=== PATIENT | male | born 1930 | race Caucasian/White ===

== ENCOUNTER 2021-12-14 19:57 | Inpatient (IN) | payer MEDICARE ==
--- NOTE | 2021-12-14 20:05 | ERPHSYRPT ---
- History of Present Illness Time Seen by Provider: 12/14/21 20:00 Source: patient, family, EMS Exam Limitations: clinical condition Physician History: This is an 89-year-old white male patient of Dr. Polanco who is a resident of [facility]. Patient has been diagnosed with right facial herpes zoster and is on valacyclovir. Patient was seen by Dr. Polanco this morning. He recently, was diagnosed with a urinary tract infection and is on antibiotics. Patient's son states that the patient did not have altered mental status earlier today. However, he does state that he appears to be weaker in the last several days as well as decreased appetite and oral intake. Patient has a history of CHF, asthma COPD. He is on amiodarone and Eliquis. He has had a history of arrhythmias and cardiac valve replacement. Patient denies chest pain. He denies abdominal pain. He has had intermittent nausea. Patient is DNR Timing/Duration: today Severity: moderate Character of Deficits: new weakness (Generalized) Deficits: decrease ability to walk, weak Baseline/Normal Cognition: alert but confused Current Cognition: alert but confused Baseline Gait: walks w/o assistance Associated Symptoms: fever, nausea, weakness Allergies/Adverse Reactions: No Known Drug Allergies Allergy (Verified 12/14/21 20:19) Home Medications: Amiodarone HCl 200 mg PO DAILY 12/01/21 [History] Aspirin 81 mg PO DAILY 12/01/21 [History] Furosemide [Lasix] 20 mg PO DAILY 12/01/21 [History] Hydrocodone/Acetaminophen [Hydrocodone-Acetamin 7.5-325] 1 each PO BIDPRN PRN 12/01/21 [History] Potassium Chloride 10 mg PO DAILY 12/01/21 [History] Mupirocin [Bactroban OINTMENT] 12/14/21 [History] Nitroglycerin 0.4 mg PO QID PRN 12/14/21 [History] Ondansetron [Ondansetron Odt] 4 mg PO QID PRN 12/14/21 [History] Valacyclovir HCl [Valacyclovir] 1,000 mg PO DAILY 12/14/21 [History] Travel Risk - International Travel Have you traveled outside of the country in past 3 weeks: No - Coronavirus Screening Are you exhibiting any of the following symptoms?: No Close contact with a COVID-19 positive Pt in past 14-21 Days: No - Review of Systems Constitutional: Fever, Weakness Eyes: No Symptoms Ears, Nose, & Throat: No Symptoms Respiratory: No Symptoms Cardiac: No Symptoms Abdominal/Gastrointestinal: Nausea, No Abdominal Pain, No Vomiting, No Diarrhea Genitourinary Symptoms: No Symptoms Musculoskeletal: No Symptoms Skin: No Symptoms Neurological: Other (Altered mental status/confusion) Psychological: No Symptoms Endocrine: No Symptoms Hematologic/Lymphatic: No Symptoms Immunological/Allergic: No Symptoms All Other Systems: Reviewed and Negative - Past Medical History Pertinent Past Medical History: Yes Neurological History: No Pertinent History ENT History: No Pertinent History Cardiac History: Arrhythmia Respiratory History: COPD Endocrine Medical History: No Pertinent History Musculoskeletal History: No Pertinent History GI Medical History: No Pertinent History History: No Pertinent History Psycho-Social History: No Pertinent History Male Reproductive Disorders: Prostate Problems - Past Surgical History Past Surgical History: Yes Neuro Surgical History: No Pertinent History Cardiac: Valve Replacement Respiratory: No Pertinent History Gastrointestinal: No Pertinent History Genitourinary: No Pertinent History Musculoskeletal: Joint Replacement Male Surgical History: No Pertinent History - Social History Smoking Status: Former smoker Exposure to second hand smoke: No Drug Use: none - Nursing Vital Signs Nursing Vital Signs: Initial Vital Signs Pulse Rate 107 H 12/14/21 20:00 Respiratory Rate 24 12/14/21 20:00 Blood Pressure 114/62 12/14/21 20:00 O2 Sat by Pulse Oximetry 93 L 12/14/21 20:00 Pain Scale Pain Intensity 0 - Purlear Coma Scale Best Eye Response (Neel): (4) open spontaneously Best Verbal Response (Neel): (4) confused conversation Best Motor Response (Neel): (6) obeys commands Neel Total: 14 - Physical Exam General Appearance: no apparent distress, lethargy (Mild arousable), obese Eye Exam: bilateral eye: normal inspection, PERRL, EOMI Ears, Nose, Throat Exam: normal ENT inspection, dry mucous membranes Neck Exam: normal inspection, non-tender, supple, full range of motion Respiratory: normal breath sounds, lungs clear, airway intact, No chest tenderness, No respiratory distress Cardiovascular: tachycardia Gastrointestinal: soft, normal bowel sounds, No tenderness Rectal Exam: not done Back Exam: normal inspection, normal range of motion, No CVA tenderness, No vertebral tenderness Extremity Exam: normal inspection, normal range of motion, pelvis stable Mental Status: oriented x 3, cooperative, 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 hearing, normal speech, PERRL Coordination/Gait: normal finger to nose Motor/Sensory: weak motor strength RUE, weak motor strength LUE, weak motor strength RLE, weak motor strength LLE Skin Exam: normal color, warm, dry SpO2 Interpretation: borderline oxygenation O2 Delivery: Room Air - Course Nursing assessment & vital signs reviewed: Yes Ordered Tests: Active Orders 24 hr Category Date Time Status Zaldivar [Catheter-[place] Zaldivar] STAT Care 12/14/21 20:18 Active IV Insertion STAT Care 12/14/21 20:07 Active NPO (ED) STAT Care 12/14/21 20:07 Active Pulse Oximetry (ED) STAT Care 12/14/21 20:07 Active HEAD WITHOUT CONTRAST [CT] Stat Exams 12/14/21 20:07 Taken BLOOD CULTURE Stat Lab 12/14/21 21:30 Received CBC W DIFF Stat Lab 12/14/21 20:05 Completed CMP Stat Lab 12/14/21 20:05 Completed CULTURE,URINE Stat Lab 12/14/21 20:19 Received Lactic Acid Stat Lab 12/14/21 20:24 Completed Lactic Acid Stat Lab 12/14/21 20:43 Ordered Lactic Acid Stat Lab 12/14/21 22:28 Received Transfer Order Routine Transfer 12/14/21 Ordered Medication Summary Generic Name Dose Route Start Last Admin Trade Name Freq PRN Reason Stop Dose Admin Levofloxacin/Dextrose 500 mg in 100 mls @ 100 mls/hr 12/14/21 21:51 12/14/21 21:56 Levofloxacin 500mg/100ml D5w IV 12/14/21 22:50 100 mls/hr STAT STA 100 mls/hr Administration Sodium Chloride 1,000 mls @ 75 mls/hr 12/14/21 22:00 12/14/21 21:57 Sodium Chloride 0.9% 1000 Ml IV 01/13/22 21:59 75 mls/hr .[id number] MISSY Administration Discontinued Medications Generic Name Dose Route Start Last Admin Trade Name Freq PRN Reason Stop Dose Admin Acetaminophen 650 mg 12/14/21 20:43 12/14/21 20:52 Acetaminophen 325 Mg Tablet PO 12/14/21 20:44 Not Given STAT STA Acetaminophen 650 mg 12/14/21 20:52 12/14/21 20:57 Acetaminophen 650 Mg Supp.Rect WI 12/14/21 20:53 650 mg STAT ONE Administration Acetaminophen Confirm 12/14/21 20:56 Acetaminophen 650 Mg Supp.Rect Administered 12/14/21 20:57 Dose 650 mg .ROUTE .STK-MED ONE Levofloxacin/Dextrose Confirm 12/14/21 21:54 Levofloxacin 500mg/100ml D5w Administered 12/14/21 21:55 Dose 500 mg in 100 mls @ ud IV .STK-MED ONE Lab/Rad Data: Laboratory Result Diagrams 12/14/21 20:05 12/14/21 20:05 Laboratory Results 12/14/21 12/14/21 12/14/21 Range/Units 20:24 20:19 20:05 WBC (4.0-10.5) K/mm3 RBC (4.1-5.6) M/mm3 Hgb (12.5-18.0) gm/dl Hct (42-50) % MCV (78-100) fl MCH (26-32) pg MCHC (32-36) g/dl RDW (11.5-14.0) % Plt Count (150-450) K/mm3 MPV (7.5-11.0) fl Gran % (36.0-66.0) % Eos # (Auto) (0-0.5) Absolute Lymphs (auto) (1.0-4.6) Absolute Monos (auto) (0.0-1.3) Lymphocytes % (24.0-44.0) % Monocytes % (0.0-12.0) % Eosinophils % (0.00-5.0) % Basophils % (0.0-0.4) % Absolute Granulocytes (1.4-6.9) Basophils # (0-0.4) Sodium (137-145) mmol/L Potassium (3.5-5.1) mmol/L Chloride (98-107) mmol/L Carbon Dioxide (22-30) mmol/L Anion Gap (5-15) MEQ/L BUN (9-20) mg/dL Creatinine (0.66-1.25) mg/dL Estimated GFR ML/MIN Glucose (74-106) mg/dL Lactic Acid 2.0 (0.4-2.0) Calcium (8.4-10.2) mg/dL Total Bilirubin (0.2-1.3) mg/dL AST (17-59) U/L ALT (0-50) U/L Alkaline Phosphatase (38-126) U/L Ammonia < 9 L (9-30) umol/L Serum Total Protein (6.3-8.2) g/dL Albumin (3.5-5.0) g/dL Urinalys Dipstick Clnc MAIN LAB Urine Color YELLOW (YELLOW) Urine Appearance CLOUDY (CLEAR) Urine pH 5.5 (5-6) Ur Specific [place] 1.020 (1.005-1.025) POC Urine Protein Conf 30 (Negative) Urine Ketones NEGATIVE (NEGATIVE) Urine Nitrite NEGATIVE (NEGATIVE) Urine Bilirubin NEGATIVE (NEGATIVE) Urine Urobilinogen 0.2 (0-1) mg/dL Urine Leukocytes MODERATE (NEGATIVE) Urine WBC (Auto) >100 (0-5) /HPF Urine RBC (Auto) >101 (0-2) /HPF U Hyaline Cast (Auto) 3-5 (0-2) /LPF U Epithel Cells (Auto) RARE (FEW) /HPF Urine Bacteria (Auto) FEW (NEGATIVE) /HPF Urine RBC LARGE (0-5) Barney/ul Urine Mucus (Auto) SLIGHT (NEGATIVE) /HPF Ur Culture Indicated? YES Urine Glucose NEGATIVE (NEGATIVE) mg/dL 12/14/21 12/14/21 Range/Units 20:05 20:05 WBC 16.8 H (4.0-10.5) K/mm3 RBC 5.49 (4.1-5.6) M/mm3 Hgb 16.7 (12.5-18.0) gm/dl Hct 51.6 H (42-50) % MCV 94.0 (78-100) fl MCH 30.4 (26-32) pg MCHC 32.4 (32-36) g/dl RDW 16.1 H (11.5-14.0) % Plt Count 120 L (150-450) K/mm3 MPV 10.7 (7.5-11.0) fl Gran % 86.4 H (36.0-66.0) % Eos # (Auto) 0.10 (0-0.5) Absolute Lymphs (auto) 0.99 L (1.0-4.6) Absolute Monos (auto) 1.18 (0.0-1.3) Lymphocytes % 5.9 L (24.0-44.0) % Monocytes % 7.0 (0.0-12.0) % Eosinophils % 0.6 (0.00-5.0) % Basophils % 0.1 (0.0-0.4) % Absolute Granulocytes 14.52 H (1.4-6.9) Basophils # 0.02 (0-0.4) Sodium 134 L (137-145) mmol/L Potassium 5.0 (3.5-5.1) mmol/L Chloride 94 L (98-107) mmol/L Carbon Dioxide 34 H (22-30) mmol/L Anion Gap 11.8 (5-15) MEQ/L BUN 29 H (9-20) mg/dL Creatinine 0.93 (0.66-1.25) mg/dL Estimated GFR > 60.0 ML/MIN Glucose 123 H (74-106) mg/dL Lactic Acid (0.4-2.0) Calcium 8.6 (8.4-10.2) mg/dL Total Bilirubin 1.30 (0.2-1.3) mg/dL AST 36 (17-59) U/L ALT 65 H (0-50) U/L Alkaline Phosphatase 114 (38-126) U/L Ammonia (9-30) umol/L Serum Total Protein 6.2 L (6.3-8.2) g/dL Albumin 3.1 L (3.5-5.0) g/dL Urinalys Dipstick Clnc Urine Color (YELLOW) Urine Appearance (CLEAR) Urine pH (5-6) Ur Specific [place] (1.005-1.025) POC Urine Protein Conf (Negative) Urine Ketones (NEGATIVE) Urine Nitrite (NEGATIVE) Urine Bilirubin (NEGATIVE) Urine Urobilinogen (0-1) mg/dL Urine Leukocytes (NEGATIVE) Urine WBC (Auto) (0-5) /HPF Urine RBC (Auto) (0-2) /HPF U Hyaline Cast (Auto) (0-2) /LPF U Epithel Cells (Auto) (FEW) /HPF Urine Bacteria (Auto) (NEGATIVE) /HPF Urine RBC (0-5) Barney/ul Urine Mucus (Auto) (NEGATIVE) /HPF Ur Culture Indicated? Urine Glucose (NEGATIVE) mg/dL - Progress Progress: improved, re-examined Progress Note: 12/14/21 22:20 CAT scan of the head without contrast shows new atrophy present. 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 There is no acute findings. 12/14/21 22:22 Medical decision making: This patient has increased confusion. He is not eating well is not drinking well. I spoke with Dr. Polanco who is the patient's primary care provider. The patient is DNR. We will admit him into the hospital provide him with IV hydration as well as Levaquin intravenous antibiotics. I did check the culture and sensitivities and what grew out of his urine in terms of bacteria is sensitive to Levaquin. Patient was on Macrodantin. Discussed with : Sarah Counseled pt/family regarding: lab results, diagnosis, rad results - Departure Departure Disposition: In-patient Admission Clinical Impression: Altered mental status, UTI (urinary tract infection) Condition: Stable Critical Care Time: No Referrals: AKBAR POLANCO MD [Primary Care Provider] - Follow up/PCP as directed
[2021-12-14 20:34] LABS: Absolute Neutrophil Ct (ANC) 14.52 (1.4-6.9); Basophil (Absolute #) 0.02 (0-0.4); Eosinophil % 0.6 % (0.00-5.0); Hematocrit 51.6 % (42-50); Hemoglobin 16.7 gm/dl (12.5-18.0); Lymphocyte (Absolute #) 0.99 (1.0-4.6); Lymphocytes % 5.9 % (24.0-44.0); Mean Corpuscular Hemoglobin 30.4 pg (26-32); Mean Corpuscular Hgb Concent. 32.4 g/dl (32-36); Mean Platelet Volume 10.7 fl (7.5-11.0); Monocyte (Absolute #) 1.18 (0.0-1.3); Neutrophil % 86.4 % (36.0-66.0); Platelet Count 120 K/mm3 (150-450); Red Blood Count 5.49 M/mm3 (4.1-5.6); Red Cell Distribution Width 16.1 % (11.5-14.0); White Blood Count 16.8 K/mm3 (4.0-10.5)
[2021-12-14] MEDS ORDERED: TYLENOL 325 MG PO STA (20:43)
[2021-12-14 20:44] LABS: ALBUMIN 3.1 g/dL (3.5-5.0); ALKALINE PHOSPHATASE 114 U/L (38-126); ANION GAP 11.8 MEQ/L (5-15); BLOOD UREA NITROGEN 29 mg/dL (9-20); CHLORIDE 94 mmol/L (98-107); Calcium 8.6 mg/dL (8.4-10.2); Carbon Dioxide 34 mmol/L (22-30); Creatinine 1 0.93 mg/dL (0.66-1.25); EST GLOMERULAR FILTRATION RATE > 60.0 ML/MIN; Glucose 123 mg/dL (74-106); SGOT/AST 36 U/L (17-59); SGPT/ALT 65 U/L (0-50); SODIUM 134 mmol/L (137-145); Total Protein 6.2 g/dL (6.3-8.2)
[2021-12-14 20:52] LABS: Bacteria FEW /HPF (NEGATIVE); Epithelial Cells RARE /HPF (FEW); Mucus SLIGHT /HPF (NEGATIVE); WBC >100 /HPF (0-5)
[2021-12-14] MEDS ORDERED: FEVERALL 650 MG PR ONE (20:52)
[2021-12-14] MEDS ORDERED: FEVERALL 650 MG ONE (20:56)
[2021-12-14 21:01] LABS: Appearance CLOUDY (CLEAR); Bilirubin NEGATIVE (NEGATIVE); Glucose NEGATIVE (NEGATIVE); Ketones NEGATIVE (NEGATIVE); Ph 5.5 (5-6); Protein,Urine Dip 30 (Negative); RBC >101 /HPF (0-2); RBC LARGE Ery/ul (0-5)
[2021-12-14 21:02] LABS: Nitrite NEGATIVE (NEGATIVE); Urine Cultured Indicated? YES; Urobilinogen 0.2 mg/dL (0-1)
[2021-12-14 21:16] LABS: Dipstick done @ ? MAIN LAB
[2021-12-14] MEDS ORDERED: Levofloxacin 500MG/100ML D5W 500 MG/100 ML BAG IV STA (21:51)
[2021-12-14] MEDS ORDERED: Levofloxacin 500MG/100ML D5W 500 MG/100 ML BAG IV ONE (21:54)
[2021-12-14] MEDS ORDERED: Sodium Chloride 0.9% 1000 ML 1,000 ML ONE (21:56)
[2021-12-14] MEDS ORDERED: Sodium Chloride 0.9% 1000 ML 1,000 ML IV SCH (22:00)
[2021-12-14 23:09] LABS: INFLUENZA A NEGATIVE (NEGATIVE); INFLUENZA B NEGATIVE (NEGATIVE); RESPIRATORY SYNCTIAL VIRUS NEGATIVE (Negative); SARS-CoV-2 Xpert Express NEGATIVE (NEGATIVE)
[2021-12-14] MEDS ORDERED: Zofran 4 MG/2 ML VIAL IV PRN (23:34)
[2021-12-15] MEDS: Sodium Chloride 0.9% 1000 ML 1,000 ML IV SCH ×2 (00:24→15:45)
[2021-12-15 05:27] LABS: Absolute Neutrophil Ct (ANC) 9.59 (1.4-6.9); Basophil (Absolute #) 0.01 (0-0.4); Eosinophil % 0.5 % (0.00-5.0); Eosinophil (Absolute #) 0.06 (0-0.5); Hematocrit 43.5 % (42-50); Hemoglobin 13.7 gm/dl (12.5-18.0); Lymphocyte (Absolute #) 1.48 (1.0-4.6); Lymphocytes % 12.4 % (24.0-44.0); Mean Cell Volume 95.4 fl (78-100); Mean Corpuscular Hgb Concent. 31.5 g/dl (32-36); Mean Platelet Volume 10.9 fl (7.5-11.0); Monocyte (Absolute #) 0.78 (0.0-1.3); Monocytes % 6.5 % (0.0-12.0); Neutrophil % 80.5 % (36.0-66.0); Platelet Count 97 K/mm3 (150-450); Red Blood Count 4.56 M/mm3 (4.1-5.6); White Blood Count 11.9 K/mm3 (4.0-10.5)
[2021-12-15 05:44] LABS: ALBUMIN 2.5 g/dL (3.5-5.0); ALKALINE PHOSPHATASE 75 U/L (38-126); ANION GAP 6.8 MEQ/L (5-15); BLOOD UREA NITROGEN 28 mg/dL (9-20); CHLORIDE 97 mmol/L (98-107); Calcium 7.8 mg/dL (8.4-10.2); Carbon Dioxide 36 mmol/L (22-30); Creatinine 1 0.82 mg/dL (0.66-1.25); EST GLOMERULAR FILTRATION RATE > 60.0 ML/MIN; Glucose 108 mg/dL (74-106); Potassium 4.5 mmol/L (3.5-5.1); SGOT/AST 40 U/L (17-59); SGPT/ALT 50 U/L (0-50); SODIUM 135 mmol/L (137-145); Total Protein 5.2 g/dL (6.3-8.2)
--- NOTE | 2021-12-15 08:32 | PCM.HP ---
History of Present Illness - Chief Complaint Chief Complaint: UTI History of Present Illness: is a 89 year old male with recent herpes zoster on the right scalp and forehead, he presented to ER yesterday with fever and increased confusion. He has no pain today, has some itching in the right side of the face and scalp. - Review of Systems Constitutional: Fever, No Chills Respiratory: No Cough, No Short Of Breath Cardiac: No Chest Pain, No Edema, No Syncope Abdominal/Gastrointestinal: No Abdominal Pain, No Nausea, No Vomiting, No Diarrhea Skin: No Rash All Other Systems: Reviewed and Negative Medications & Allergies Home Medications: Home Medication List Amiodarone HCl 200 mg PO DAILY 12/01/21 [History Confirmed 12/14/21] Aspirin 81 mg PO DAILY 12/01/21 [History Confirmed 12/14/21] Furosemide [Lasix] 20 mg PO DAILY 12/01/21 [History Confirmed 12/14/21] Hydrocodone/Acetaminophen [Hydrocodone-Acetamin 7.5-325] 1 each PO BIDPRN PRN 12/01/21 [History Confirmed 12/14/21] Potassium Chloride 10 mg PO DAILY 12/01/21 [History Confirmed 12/14/21] Mupirocin [Bactroban OINTMENT] 1 applic TOP TID 12/14/21 [History Confirmed 12/15/21] Nitroglycerin 0.4 mg PO Q5MIN PRN MR X 3 PRN 12/14/21 [History Confirmed 12/15/21] Ondansetron [Ondansetron Odt] 4 mg PO TIDPRN PRN 12/14/21 [History Confirmed 12/15/21] Valacyclovir HCl [Valacyclovir] 1,000 mg PO TID 12/14/21 [History Confirmed 12/15/21] Allergies/Adverse Reactions: Allergies Allergy/AdvReac Type Severity Reaction Status Date / Time No Known Drug Allergies Allergy Verified 12/14/21 20:19 - Past Medical History Past Medical History: Yes Neurological History: No Pertinent History ENT History: No Pertinent History Cardiac History: Arrhythmia Respiratory History: COPD Endocrine Medical History: No Pertinent History Musculoskelatal History: No Pertinent History GI Medical History: No Pertinent History History: No Pertinent History Pyscho-Social History: No Pertinent History Male Reproductive Disorders: Prostate Problems Comment: heart surgery in 1994, prostate cancer - Past Surgical History Past Surgical History: Yes Neuro Surgical History: No Pertinent History Cardiac History: Valve Replacement Respiratory Surgery: No Pertinent History GI Surgical History: No Pertinent History Genitourinary Surgical Hx: No Pertinent History Musculskeletal Surgical Hx: Joint Replacement Male Surgical History: No Pertinent History Other Surgical History: knee replaced - Social History Smoking Status: Heavy tobacco smoker Exposure to second hand smoke: No Alcohol: None Drug Use: none - Physical Exam Vital Signs: Vital Signs - 24 hr Temp Pulse Resp BP Pulse Ox 12/15/21 07:25 98.0 F 72 16 107/58 93 L 12/15/21 04:00 98.1 F 71 16 106/55 95 12/14/21 23:57 97.3 F 82 20 93/52 91 L 12/14/21 23:32 83 20 87/57 94 L 12/14/21 23:12 88 18 82/52 94 L 12/14/21 23:02 100.0 F 87 18 69/40 93 L 12/14/21 22:01 100.8 F 94 H 18 92/51 93 L 12/14/21 21:04 101.5 F 104 H 20 119/83 93 L 12/14/21 20:41 101.3 F 103 H 26 H 114/62 93 L 12/14/21 20:09 93 L 12/14/21 20:00 107 H 24 114/62 93 L General Appearance: no apparent distress, mild distress Neurologic Exam: alert, oriented x 3 Respiratory Exam: crackles/rales Cardiovascular Exam: regular rate/rhythm, normal heart sounds, normal peripheral pulses Gastrointestinal/Abdomen Exam: soft, normal bowel sounds, No tenderness, No mass Skin Exam: other (scabbed healing areas on the right side of the forehead) Results - Labs Lab/Micro Results: Lab Results-Last 24 Hours 12/14/21 12/14/21 12/14/21 Range/Units 20:05 20:05 20:05 WBC 16.8 H (4.0-10.5) K/mm3 RBC 5.49 (4.1-5.6) M/mm3 Hgb 16.7 (12.5-18.0) gm/dl Hct 51.6 H (42-50) % MCV 94.0 (78-100) fl MCH 30.4 (26-32) pg MCHC 32.4 (32-36) g/dl RDW 16.1 H (11.5-14.0) % Plt Count 120 L (150-450) K/mm3 MPV 10.7 (7.5-11.0) fl Gran % 86.4 H (36.0-66.0) % Eos # (Auto) 0.10 (0-0.5) Absolute Lymphs (auto) 0.99 L (1.0-4.6) Absolute Monos (auto) 1.18 (0.0-1.3) Lymphocytes % 5.9 L (24.0-44.0) % Monocytes % 7.0 (0.0-12.0) % Eosinophils % 0.6 (0.00-5.0) % Basophils % 0.1 (0.0-0.4) % Absolute Granulocytes 14.52 H (1.4-6.9) Basophils # 0.02 (0-0.4) Sodium 134 L (137-145) mmol/L Potassium 5.0 (3.5-5.1) mmol/L Chloride 94 L (98-107) mmol/L Carbon Dioxide 34 H (22-30) mmol/L Anion Gap 11.8 (5-15) MEQ/L BUN 29 H (9-20) mg/dL Creatinine 0.93 (0.66-1.25) mg/dL Estimated GFR > 60.0 ML/MIN Glucose 123 H (74-106) mg/dL Lactic Acid (0.4-2.0) Calcium 8.6 (8.4-10.2) mg/dL Total Bilirubin 1.30 (0.2-1.3) mg/dL AST 36 (17-59) U/L ALT 65 H (0-50) U/L Alkaline Phosphatase 114 (38-126) U/L Ammonia < 9 L (9-30) umol/L Serum Total Protein 6.2 L (6.3-8.2) g/dL Albumin 3.1 L (3.5-5.0) g/dL Urinalys Dipstick Clnc Urine Color (YELLOW) Urine Appearance (CLEAR) Urine pH (5-6) Ur Specific [place] (1.005-1.025) POC Urine Protein Conf (Negative) Urine Ketones (NEGATIVE) Urine Nitrite (NEGATIVE) Urine Bilirubin (NEGATIVE) Urine Urobilinogen (0-1) mg/dL Urine Leukocytes (NEGATIVE) Urine WBC (Auto) (0-5) /HPF Urine RBC (Auto) (0-2) /HPF U Hyaline Cast (Auto) (0-2) /LPF U Epithel Cells (Auto) (FEW) /HPF Urine Bacteria (Auto) (NEGATIVE) /HPF Urine RBC (0-5) Barney/ul Urine Mucus (Auto) (NEGATIVE) /HPF Ur Culture Indicated? Urine Glucose (NEGATIVE) mg/dL Influenza Type A Ag (NEGATIVE) Influenza Type B Ag (NEGATIVE) RSV (PCR) (Negative) SARS-CoV-2 (PCR) (NEGATIVE) 12/14/21 12/14/21 12/14/21 Range/Units 20:19 20:24 22:30 WBC (4.0-10.5) K/mm3 RBC (4.1-5.6) M/mm3 Hgb (12.5-18.0) gm/dl Hct (42-50) % MCV (78-100) fl MCH (26-32) pg MCHC (32-36) g/dl RDW (11.5-14.0) % Plt Count (150-450) K/mm3 MPV (7.5-11.0) fl Gran % (36.0-66.0) % Eos # (Auto) (0-0.5) Absolute Lymphs (auto) (1.0-4.6) Absolute Monos (auto) (0.0-1.3) Lymphocytes % (24.0-44.0) % Monocytes % (0.0-12.0) % Eosinophils % (0.00-5.0) % Basophils % (0.0-0.4) % Absolute Granulocytes (1.4-6.9) Basophils # (0-0.4) Sodium (137-145) mmol/L Potassium (3.5-5.1) mmol/L Chloride (98-107) mmol/L Carbon Dioxide (22-30) mmol/L Anion Gap (5-15) MEQ/L BUN (9-20) mg/dL Creatinine (0.66-1.25) mg/dL Estimated GFR ML/MIN Glucose (74-106) mg/dL Lactic Acid 2.0 (0.4-2.0) Calcium (8.4-10.2) mg/dL Total Bilirubin (0.2-1.3) mg/dL AST (17-59) U/L ALT (0-50) U/L Alkaline Phosphatase (38-126) U/L Ammonia (9-30) umol/L Serum Total Protein (6.3-8.2) g/dL Albumin (3.5-5.0) g/dL Urinalys Dipstick Clnc MAIN LAB Urine Color YELLOW (YELLOW) Urine Appearance CLOUDY (CLEAR) Urine pH 5.5 (5-6) Ur Specific [place] 1.020 (1.005-1.025) POC Urine Protein Conf 30 (Negative) Urine Ketones NEGATIVE (NEGATIVE) Urine Nitrite NEGATIVE (NEGATIVE) Urine Bilirubin NEGATIVE (NEGATIVE) Urine Urobilinogen 0.2 (0-1) mg/dL Urine Leukocytes MODERATE (NEGATIVE) Urine WBC (Auto) >100 (0-5) /HPF Urine RBC (Auto) >101 (0-2) /HPF U Hyaline Cast (Auto) 3-5 (0-2) /LPF U Epithel Cells (Auto) RARE (FEW) /HPF Urine Bacteria (Auto) FEW (NEGATIVE) /HPF Urine RBC LARGE (0-5) Barney/ul Urine Mucus (Auto) SLIGHT (NEGATIVE) /HPF Ur Culture Indicated? YES Urine Glucose NEGATIVE (NEGATIVE) mg/dL Influenza Type A Ag NEGATIVE (NEGATIVE) Influenza Type B Ag NEGATIVE (NEGATIVE) RSV (PCR) NEGATIVE (Negative) SARS-CoV-2 (PCR) NEGATIVE (NEGATIVE) 12/15/21 12/15/21 Range/Units 04:20 04:20 WBC 11.9 H (4.0-10.5) K/mm3 RBC 4.56 (4.1-5.6) M/mm3 Hgb 13.7 (12.5-18.0) gm/dl Hct 43.5 (42-50) % MCV 95.4 (78-100) fl MCH 30.0 (26-32) pg MCHC 31.5 L (32-36) g/dl RDW 16.0 H (11.5-14.0) % Plt Count 97 L (150-450) K/mm3 MPV 10.9 (7.5-11.0) fl Gran % 80.5 H (36.0-66.0) % Eos # (Auto) 0.06 (0-0.5) Absolute Lymphs (auto) 1.48 (1.0-4.6) Absolute Monos (auto) 0.78 (0.0-1.3) Lymphocytes % 12.4 L (24.0-44.0) % Monocytes % 6.5 (0.0-12.0) % Eosinophils % 0.5 (0.00-5.0) % Basophils % 0.1 (0.0-0.4) % Absolute Granulocytes 9.59 H (1.4-6.9) Basophils # 0.01 (0-0.4) Sodium 135 L (137-145) mmol/L Potassium 4.5 (3.5-5.1) mmol/L Chloride 97 L (98-107) mmol/L Carbon Dioxide 36 H (22-30) mmol/L Anion Gap 6.8 (5-15) MEQ/L BUN 28 H (9-20) mg/dL Creatinine 0.82 (0.66-1.25) mg/dL Estimated GFR > 60.0 ML/MIN Glucose 108 H (74-106) mg/dL Lactic Acid (0.4-2.0) Calcium 7.8 L (8.4-10.2) mg/dL Total Bilirubin 1.20 (0.2-1.3) mg/dL AST 40 (17-59) U/L ALT 50 (0-50) U/L Alkaline Phosphatase 75 (38-126) U/L Ammonia (9-30) umol/L Serum Total Protein 5.2 L (6.3-8.2) g/dL Albumin 2.5 L (3.5-5.0) g/dL Urinalys Dipstick Clnc Urine Color (YELLOW) Urine Appearance (CLEAR) Urine pH (5-6) Ur Specific [place] (1.005-1.025) POC Urine Protein Conf (Negative) Urine Ketones (NEGATIVE) Urine Nitrite (NEGATIVE) Urine Bilirubin (NEGATIVE) Urine Urobilinogen (0-1) mg/dL Urine Leukocytes (NEGATIVE) Urine WBC (Auto) (0-5) /HPF Urine RBC (Auto) (0-2) /HPF U Hyaline Cast (Auto) (0-2) /LPF U Epithel Cells (Auto) (FEW) /HPF Urine Bacteria (Auto) (NEGATIVE) /HPF Urine RBC (0-5) [place]/ul Urine Mucus (Auto) (NEGATIVE) /HPF Ur Culture Indicated? Urine Glucose (NEGATIVE) mg/dL Influenza Type A Ag (NEGATIVE) Influenza Type B Ag (NEGATIVE) RSV (PCR) (Negative) SARS-CoV-2 (PCR) (NEGATIVE) - Radiology Impressions Radiology Exams & Impressions: Radiology Procedures Category Date Time Status HEAD WITHOUT CONTRAST [CT] Stat Exams 12/14/21 20:07 Taken Assessment/Plan (1) UTI (urinary tract infection) Current Visit: Yes Status: Acute Assessment & Plan: on levaquin, culture pending. grew enterococcus on culture Code(s): N39.0 - URINARY TRACT INFECTION, SITE NOT SPECIFIED (2) Herpes zoster Current Visit: Yes Status: Acute Code(s): B02.9 - ZOSTER WITHOUT COMPLICATIONS (3) Altered mental status Current Visit: Yes Status: Acute Code(s): R41.82 - ALTERED MENTAL STATUS, UNSPECIFIED
--- NOTE | 2021-12-15 08:48 | XRAY ---
Indication: Altered mental status. Right facial herpes zoster. Multiple contiguous axial images obtained through the head without contrast. Comparison: May 19, 2011. There has been interval age-appropriate global atrophy with moderate periventricular degenerative micro-ischemia bilaterally. Remote lacunar infarcts left basal ganglia, both thalami, and left mid periventricular. No acute intracranial hemorrhage, abnormal extra-axial fluid collection, or mass effect. Fourth ventricle is midline without hydrocephalus. Bony calvarium intact. Visualized paranasal sinuses and mastoid air cells are clear. Impression: New normal aging brain including atrophy and degenerative micro-ischemia. New multifocal remote cerebral lacunar infarcts as detailed. No acute intracranial abnormalities.
[2021-12-15] MEDS ORDERED: NON-FORMULARY ITEM (Potassium Chloride [Potassium Chloride] 10 MEQ Tab.Er.Prt) PO SCH (10:00)
[2021-12-15] MEDS ORDERED: NON-FORMULARY ITEM (Valacyclovir Hcl [Valacyclovir] 1,000 MG Tablet) PO SCH (10:00)
[2021-12-15 10:55] LABS: Slide Review 1 YES
[2021-12-15] MEDS: ECOTRIN 81 MG PO SCH (11:22)
[2021-12-15] MEDS: Bactroban OINTMENT TOP SCH ×3 (11:23→21:46)
[2021-12-15] MEDS: LASIX 20 MG PO SCH (11:24)
[2021-12-15] MEDS: ACYCLOVIR PO SCH ×4 (11:24→21:45)
[2021-12-15] MEDS: Cordarone 200 MG PO SCH (11:24)
[2021-12-15] MEDS: Klor Con 10 MEQ PO SCH (11:24)
[2021-12-15] MEDS: NORCO 7.5/325 MG TAB PO PRN ×2 (15:09→21:45)
[2021-12-15] MEDS: Cipro 500 MG PO SCH (16:48)
[2021-12-15] MEDS ORDERED: HYDROCODONE-ACETAMIN 10-325 MG PO ONE (17:00)
[2021-12-15] MEDS: TYLENOL 325 MG PO PRN (18:38)
[2021-12-15] MEDS ORDERED: Levofloxacin 500MG/100ML D5W 500 MG/100 ML BAG IV SCH (22:00)
[2021-12-16] MEDS: ACYCLOVIR PO SCH ×5 (06:29→22:03)
[2021-12-16] MEDS: Cipro 500 MG PO SCH ×2 (06:29→18:10)
[2021-12-16] MEDS: TYLENOL 325 MG PO PRN (06:29)
--- NOTE | 2021-12-16 09:11 | PCM.NOTE ---
Date and Time: 12/16/21 09 Subjective Assessment: patient is still quite weak, he is tolerating po intake. he c/o some cough and states he fell in his room and required 4 nursing staff to get him up Objective Exam General Appearance: no apparent distress Neurologic Exam: alert, cooperative Skin Exam: other (scabbed, healing dermatomal rash on right side of forehead/scalp) Respiratory Exam: normal breath sounds, lungs clear, No respiratory distress Cardiovascular Exam: regular rate/rhythm, normal heart sounds Gastrointestinal/Abdomen Exam: soft, No tenderness, No mass OBJECTIVE DATA Vital Signs: Vital Signs - 24 hr Temp Pulse Resp BP Pulse Ox 12/16/21 07:41 97.3 F 99 H 18 112/62 93 L 12/16/21 04:46 97.9 F 83 26 H 96/51 92 L 12/15/21 23:55 97.7 F 80 20 97/50 93 L 12/15/21 21:00 97.8 F 78 20 98/54 95 12/15/21 19:21 95 12/15/21 17:45 103/53 12/15/21 16:00 98.6 F 76 16 87/52 94 L 12/15/21 11:33 96 12/15/21 11:22 97.9 F 70 16 101/52 96 Pain Assessment - Last Documented Pain Intensity 5 Pain Scale Used 0-10 Pain Scale Intake and Output: Intake & Output 12/13/21 12/14/21 12/15/21 12/16/21 11:59 11:59 11:59 11:59 Intake Total 682 2439 Output Total 300 600 Balance 382 1839 Weight 86.2 kg Lab Results: Lab Results-Last 24 Hours 12/15/21 Range/Units 04:20 Slides for Path Review YES Radiology Exams: Radiology Procedures Category Date Time Status HEAD WITHOUT CONTRAST [CT] Stat Exams 12/14/21 20:07 Completed Assessment/Plan (1) UTI (urinary tract infection) Current Visit: Yes Status: Acute Assessment & Plan: on levaquin based on recent culture with enterococcus, repeat culture is pending. wbc improving Code(s): N39.0 - URINARY TRACT INFECTION, SITE NOT SPECIFIED (2) Herpes zoster Current Visit: Yes Status: Acute Assessment & Plan: on valtrex, seems to be healing/scabbed areas. he is profoundly weak, ?whether he can return to assisted living or will need ecf/rehab stay after discharge. PT consulted, will continue current therapy Code(s): B02.9 - ZOSTER WITHOUT COMPLICATIONS (3) Altered mental status Current Visit: Yes Status: Acute Code(s): R41.82 - ALTERED MENTAL STATUS, UNSPECIFIED
[2021-12-16] MEDS: ECOTRIN 81 MG PO SCH (09:40)
[2021-12-16] MEDS: LASIX 20 MG PO SCH (09:40)
[2021-12-16] MEDS: Klor Con 10 MEQ PO SCH (09:40)
[2021-12-16] MEDS: Cordarone 200 MG PO SCH (09:40)
[2021-12-16] MEDS: Sodium Chloride 0.9% 1000 ML 1,000 ML IV SCH (11:50)
[2021-12-16] MEDS: Bactroban OINTMENT TOP SCH ×3 (11:54→22:03)
--- NOTE | 2021-12-16 12:30 | XRAY ---
Indication: alf placement. Comparison: May 03, 2011. Portable chest again demonstrates right lung volume loss and right hemidiaphragm elevation. New mild diffuse right lung interstitial alveolar opacities with small pleural effusion/thickening and new mild left base infiltrate/atelectasis. 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 Interval cardiac valve replacement surgery. Bony thorax intact again with osteopenia and degenerative changes. Impression: 1. New diffuse right lung interstitial alveolar opacities with small pleural effusion/thickening and left base infiltrate/atelectasis. 2. Chronic right lung volume loss, right hemidiaphragm elevation, and previous cardiothoracic surgery
[2021-12-16] MEDS: NORCO 7.5/325 MG TAB PO PRN (19:33)
[2021-12-16] MEDS ORDERED: ROCEPHIN 1 Gm-D5w 50 ml Bag** 1 G/50 ML IVPB IV SCH (22:00)
[2021-12-17] MEDS: TYLENOL 325 MG PO PRN (05:17)
[2021-12-17 05:32] LABS: Absolute Neutrophil Ct (ANC) 7.08 (1.4-6.9); Basophil (Absolute #) 0.01 (0-0.4); Eosinophil % 4.3 % (0.00-5.0); Eosinophil (Absolute #) 0.41 (0-0.5); Hematocrit 41.7 % (42-50); Lymphocyte (Absolute #) 1.24 (1.0-4.6); Mean Corpuscular Hemoglobin 30.2 pg (26-32); Mean Corpuscular Hgb Concent. 31.2 g/dl (32-36); Mean Platelet Volume 10.8 fl (7.5-11.0); Monocytes % 8.4 % (0.0-12.0); Neutrophil % 74.2 % (36.0-66.0); Platelet Count 90 K/mm3 (150-450); Red Cell Distribution Width 16.2 % (11.5-14.0); White Blood Count 9.5 K/mm3 (4.0-10.5)
[2021-12-17 05:37] LABS: ANION GAP 5.2 MEQ/L (5-15); BLOOD UREA NITROGEN 19 mg/dL (9-20); CHLORIDE 95 mmol/L (98-107); Calcium 7.6 mg/dL (8.4-10.2); Carbon Dioxide 38 mmol/L (22-30); Creatinine 1 0.59 mg/dL (0.66-1.25); EST GLOMERULAR FILTRATION RATE > 60.0 ML/MIN; Glucose 86 mg/dL (74-106); Potassium 3.8 mmol/L (3.5-5.1); SODIUM 134 mmol/L (137-145)
[2021-12-17] MEDS: NORCO 7.5/325 MG TAB PO PRN (06:52)
[2021-12-17] MEDS: ACYCLOVIR PO SCH ×4 (06:52→19:08)
[2021-12-17 07:00] LABS: Slide Review 1 YES
[2021-12-17] MEDS: Cipro 500 MG PO SCH ×2 (07:38→17:20)
--- NOTE | 2021-12-17 07:54 | PCM.NOTE ---
Date and Time: 12/17/21 0751 Subjective Assessment: patient is alert and cooperative, choking some after taking pills. Objective Exam General Appearance: no apparent distress Neurologic Exam: alert, cooperative Skin Exam: other (scabbed healing lesions on right side of face and scalp) Respiratory Exam: normal breath sounds, lungs clear, No respiratory distress Cardiovascular Exam: regular rate/rhythm, normal heart sounds Gastrointestinal/Abdomen Exam: soft, No tenderness, No mass OBJECTIVE DATA Vital Signs: Vital Signs - 24 hr Temp Pulse Resp BP Pulse Ox 12/17/21 07:42 97.7 F 71 20 94/48 91 L 12/17/21 04:26 98.2 F 75 18 93/54 93 L 12/16/21 23:35 98.4 F 101 H 16 84/50 92 L 12/16/21 20:08 92 L 12/16/21 19:53 97.8 F 80 20 96/52 92 L 12/16/21 16:33 98.6 F 84 16 118/54 92 L 12/16/21 12:04 98.6 F 77 16 82/46 89 L Pain Assessment - Last Documented Pain Intensity 4 Pain Scale Used 0-10 Pain Scale Intake and Output: Intake & Output 12/14/21 12/15/21 12/16/21 12/17/21 11:59 11:59 11:59 11:59 Intake Total 682 3019 2337 Output Total 781 191 0635 Balance 382 2419 187 Weight 86.2 kg Lab Results: Lab Results-Last 24 Hours 12/17/21 12/17/21 Range/Units 04:50 04:50 WBC 9.5 (4.0-10.5) K/mm3 RBC 4.30 (4.1-5.6) M/mm3 Hgb 13.0 (12.5-18.0) gm/dl Hct 41.7 L (42-50) % MCV 97.0 (78-100) fl MCH 30.2 (26-32) pg MCHC 31.2 L (32-36) g/dl RDW 16.2 H (11.5-14.0) % Plt Count 90 L (150-450) K/mm3 MPV 10.8 (7.5-11.0) fl Gran % 74.2 H (36.0-66.0) % Eos # (Auto) 0.41 (0-0.5) Absolute Lymphs (auto) 1.24 (1.0-4.6) Absolute Monos (auto) 0.80 (0.0-1.3) Lymphocytes % 13.0 L (24.0-44.0) % Monocytes % 8.4 (0.0-12.0) % Eosinophils % 4.3 (0.00-5.0) % Basophils % 0.1 (0.0-0.4) % Absolute Granulocytes 7.08 H (1.4-6.9) Basophils # 0.01 (0-0.4) Sodium 134 L (137-145) mmol/L Potassium 3.8 (3.5-5.1) mmol/L Chloride 95 L (98-107) mmol/L Carbon Dioxide 38 H (22-30) mmol/L Anion Gap 5.2 (5-15) MEQ/L BUN 19 (9-20) mg/dL Creatinine 0.59 L (0.66-1.25) mg/dL Estimated GFR > 60.0 ML/MIN Glucose 86 (74-106) mg/dL Calcium 7.6 L (8.4-10.2) mg/dL Slides for Path Review YES Radiology Exams: Radiology Procedures Category Date Time Status CHEST 1 VIEW (PORTABLE) Urgent Exams 12/16/21 11:57 Completed CHEST WITHOUT CONTRAST [CT] Routine Exams 12/17/21 07:50 Ordered Multi-Disciplinary Progress Notes: Multi-Disciplinary Progress Notes 12/16/21 12:37 Case Management Note by Claudia Banuelos PHYSICAL THERAPY WORKED WITH PATIENT AND STATED HE WAS MODERATE ASSISTANCE. SHE RECOMMENDED SOME REHAB PRIOR TO RETURNING TO ASSISTED LIVING. S/W - SHE WAS NOTIFIED OF PT RECOMMENDATIONS AND AGREED WITH PLAN FOR REHAB. THEY [facility]IDE [facility] AND SHE WOULD LIKE FOR HIM TO GO THERE FOR THE REHAB. REFERRAL FAXED AT THIS TIME. SHE IS AWARE THAT IF PATIENT BECOMES MORE A&O PRIOR TO DC AND WOULD NOT LIKE TO GO TO REHAB- HE WOULD NOT HAVE TO GO AGAINST HIS WILL. Initialized on 12/16/21 12:37 - END OF NOTE Assessment/Plan (1) Dysphagia Current Visit: Yes Status: Acute Assessment & Plan: ST evaluation on 12/15 reviewed, recommend esophagram and MBS, abnormal chest xray noted with rt lung changes. concerning for aspiration potentially, will get CT and MBS Code(s): R13.10 - DYSPHAGIA, UNSPECIFIED (2) UTI (urinary tract infection) Current Visit: Yes Status: Acute Assessment & Plan: on cipro, enterococcus sens on culture Code(s): N39.0 - URINARY TRACT INFECTION, SITE NOT SPECIFIED (3) Herpes zoster Current Visit: Yes Status: Acute Code(s): B02.9 - ZOSTER WITHOUT COMPLICATIONS (4) Altered mental status Current Visit: Yes Status: Acute Code(s): R41.82 - ALTERED MENTAL STATUS, UNSPECIFIED
[2021-12-17] MEDS: HYDROCODONE-ACETAMIN 10-325 MG PO PRN ×2 (08:07→14:11)
[2021-12-17] MEDS: Sodium Chloride 0.9% 1000 ML 1,000 ML IV SCH (08:08)
[2021-12-17] MEDS: ECOTRIN 81 MG PO SCH (09:20)
[2021-12-17] MEDS: Bactroban OINTMENT TOP SCH ×3 (09:20→22:00)
[2021-12-17] MEDS: LASIX 20 MG PO SCH (09:20)
[2021-12-17] MEDS: Klor Con 10 MEQ PO SCH (09:20)
[2021-12-17] MEDS: Cordarone 200 MG PO SCH (09:21)
--- NOTE | 2021-12-17 14:56 | XRAY ---
Indication: Choking. Abnormal chest radiograph. Multiple contiguous images obtained through the chest without contrast. Comparison: None Mild respiration artifact degrades study. Mild/moderate diffuse pulmonary emphysema, right hemidiaphragm elevation, and right lung volume loss. There is diffuse scattered consolidating/nonconsolidating interstitial alveolar opacities greatest in right lower lobe with small bilateral effusions. Right posterior gutter demonstrates tiny focus of calcified pleural plaquing. Heart not enlarged with scattered coronary calcifications. Base of ascending aorta demonstrates aortic stent graft. Remaining aorta demonstrates moderate diffuse scattered calcifications without aneurysm. Small subcarinal calcified node. No pathologic mediastinal lymphadenopathy. Small hiatal hernia. Bony thorax demonstrates osteopenia, mild/moderate degenerative changes throughout the spine, inferior L1 Schmorl node, and sternotomy wires. Limited upper abdomen demonstrates incompletely visualized moderate hydronephrotic right kidney and tiny splenic calcified granulomas. Impression: 1. Respiration artifact. 2. Diffuse bilateral consolidating/nonconsolidating interstitial alveolar opacities with small bilateral effusions. 3. Incidental pulmonary emphysema, right hemidiaphragm elevation, tiny right base calcified pleural plaquing, diffuse arteriosclerotic disease, ascending aortic stent graft, small hiatal hernia, chronic bony findings, and old granulomatous disease. 4. Incompletely visualized hydronephrotic right kidney.
--- NOTE | 2021-12-17 15:02 | XRAY ---
Indication: Dysphagia. Modified barium swallow study performed by the department of speech therapy with fluoroscopic assistance provided. Patient ingested multiple consistencies of liquids and solids. Full report and recommendations will be reported separately. Approximately 1 minute 47 seconds fluoroscopy used.
[2021-12-18] MEDS: ACYCLOVIR PO SCH ×2 (00:31→08:38)
[2021-12-18 04:43] LABS: Absolute Neutrophil Ct (ANC) 6.56 (1.4-6.9); Basophil (Absolute #) 0.01 (0-0.4); Eosinophil % 2.5 % (0.00-5.0); Eosinophil (Absolute #) 0.22 (0-0.5); Hematocrit 43.6 % (42-50); Hemoglobin 13.7 gm/dl (12.5-18.0); Lymphocyte (Absolute #) 1.11 (1.0-4.6); Lymphocytes % 12.8 % (24.0-44.0); Mean Cell Volume 96.7 fl (78-100); Mean Corpuscular Hemoglobin 30.4 pg (26-32); Mean Corpuscular Hgb Concent. 31.4 g/dl (32-36); Mean Platelet Volume 10.4 fl (7.5-11.0); Monocyte (Absolute #) 0.75 (0.0-1.3); Monocytes % 8.7 % (0.0-12.0); Neutrophil % 75.9 % (36.0-66.0); Platelet Count 103 K/mm3 (150-450); Red Blood Count 4.51 M/mm3 (4.1-5.6); Red Cell Distribution Width 16.1 % (11.5-14.0); White Blood Count 8.7 K/mm3 (4.0-10.5)
[2021-12-18 05:11] LABS: ANION GAP 4.6 MEQ/L (5-15); BLOOD UREA NITROGEN 18 mg/dL (9-20); CHLORIDE 94 mmol/L (98-107); Calcium 7.8 mg/dL (8.4-10.2); Carbon Dioxide 38 mmol/L (22-30); Creatinine 1 0.62 mg/dL (0.66-1.25); EST GLOMERULAR FILTRATION RATE > 60.0 ML/MIN; Glucose 94 mg/dL (74-106); SODIUM 133 mmol/L (137-145)
--- NOTE | 2021-12-18 08:31 | PCM.NOTE ---
Date and Time: 12/18/21827 Subjective Assessment: patient is angry this morning, he states no one will give him anything to drink or tell him what is going on. he is very concerned about his at home and feels like no one is communicating with him. he is alert, seems to be oriented but just upset about being NPO for esophagram Objective Exam General Appearance: no apparent distress Skin Exam: other (healing, scabbed areas on right forehead and periorbital region) Respiratory Exam: normal breath sounds, lungs clear, No respiratory distress Cardiovascular Exam: regular rate/rhythm, normal heart sounds Gastrointestinal/Abdomen Exam: soft, No tenderness, No mass OBJECTIVE DATA Vital Signs: Vital Signs - 24 hr Temp Pulse Resp BP Pulse Ox 12/18/21 08:00 97.8 F 122 H 16 118/70 88 L 12/18/21 04:00 97.5 F 109 H 18 107/57 91 L 12/17/21 23:13 98.5 F 95 H 17 97/54 93 L 12/17/21 19:55 97.8 F 107 H 19 117/59 93 L 12/17/21 19:02 91 L 12/17/21 17:59 91 L 12/17/21 15:49 98.2 F 103 H 16 100/55 87 L 12/17/21 12:15 97.5 F 86 20 133/63 90 L Pain Assessment - Last Documented Pain Intensity 0 Pain Scale Used 0-10 Pain Scale Intake and Output: Intake & Output 12/15/21 12/16/21 12/17/21 12/18/21 11:59 11:59 11:59 11:59 Intake Total 682 3019 2577 740 Output Total 390 474 5227 550 Balance 382 2419 427 190 Weight 86.2 kg 86.2 kg Lab Results: Lab Results-Last 24 Hours 12/18/21 12/18/21 Range/Units 04:30 04:30 WBC 8.7 (4.0-10.5) K/mm3 RBC 4.51 (4.1-5.6) M/mm3 Hgb 13.7 (12.5-18.0) gm/dl Hct 43.6 (42-50) % MCV 96.7 (78-100) fl MCH 30.4 (26-32) pg MCHC 31.4 L (32-36) g/dl RDW 16.1 H (11.5-14.0) % Plt Count 103 L (150-450) K/mm3 MPV 10.4 (7.5-11.0) fl Gran % 75.9 H (36.0-66.0) % Eos # (Auto) 0.22 (0-0.5) Absolute Lymphs (auto) 1.11 (1.0-4.6) Absolute Monos (auto) 0.75 (0.0-1.3) Lymphocytes % 12.8 L (24.0-44.0) % Monocytes % 8.7 (0.0-12.0) % Eosinophils % 2.5 (0.00-5.0) % Basophils % 0.1 (0.0-0.4) % Absolute Granulocytes 6.56 (1.4-6.9) Basophils # 0.01 (0-0.4) Sodium 133 L (137-145) mmol/L Potassium 4.0 (3.5-5.1) mmol/L Chloride 94 L (98-107) mmol/L Carbon Dioxide 38 H (22-30) mmol/L Anion Gap 4.6 L (5-15) MEQ/L BUN 18 (9-20) mg/dL Creatinine 0.62 L (0.66-1.25) mg/dL Estimated GFR > 60.0 ML/MIN Glucose 94 (74-106) mg/dL Calcium 7.8 L (8.4-10.2) mg/dL Radiology Exams: Radiology Procedures Category Date Time Status BARIUM SWALLOW ESOPHOGRAM Routine Exams 12/18/21 09:30 Ordered CHEST 1 VIEW (PORTABLE) Urgent Exams 12/16/21 11:57 Completed CHEST WITHOUT CONTRAST [CT] Routine Exams 12/17/21 07:50 Completed MODIFIED BARIUM SWALLOW (RAD) [MODIFIED BARIUM SWALLOW Exams 12/17/21 07:58 Completed EXAM] Routine Multi-Disciplinary Progress Notes: Multi-Disciplinary Progress Notes 12/17/21 19:00 Mod Barium Swallow Note by Debora Holliday Modified Barium Swallow Study ST Modified Barium Swallow Study Start: 12/17/21 18:10 Freq: Status: Active Protocol: Document 12/17/21 18:17 BM (Rec: 12/17/21 18:29 BM [id number]) E-Sign 12/17/21 18:17 BM Modified Barium Swallow Reason for Assessment Primary Diagnosis R41.82 - ALTERED MENTAL STATUS , UNSPECIFIED Primary Diagnosis (cont) N39.0 - URINARY TRACT INFECTION, SITE NOT SPECIFIED Treatment Diagnosis #1 R13.12 - DYSPHAGIA, OROPHARYNGEAL PHASE Reason for Assessment PATIENT REFERRED FOR MBS STUDY FOLLOWING CLINICAL BEDSIDE SWALLOW EVALUATION BY HIGH SCHOOL SPORTS COACH. PATIENT CURRENTLY HOSPITALIZED DUE TO ALTERED MENTAL STATUS, URINARY TRACT INFECTION, AND HERPES ZOSTER TO RIGHT HEAD/ FACE PATIENT REPORTED HISTORY OF ESOPHAGEAL ASSESSMENT X 3 IN [place] A FEW YEARS AGO, WITHOUT NO KNOWN OUTCOME. PATIENT C/O HAVING COUGH/CHOKE OCCUR WITH MEALS, WHEN EATING , DRINKING, AND JUST ON SALIVA . Onset Date 12/15/21 Date of Evaluation/SOC 12/17/21 Pain Assessment Do you have pain on swallowing No Non-verbal signs & symptoms of pain No Modified Barium Swallow View This evaluation was completed to assess the functioning of the oral and pharyngeal phases of swallowing and to determine if the patient is aspirating or at risk for aspiration. Modified Barium Swallow View Lateral View Consistencies Assessed Barium trials included: Thin Liquid via Spoon,Thin Liquid via Cup,Thin Liquid via Straw,[place] Liquid via Spoon ,Thin Honey Liquid via spoon, Honey Liquid via Spoon,Pudding Liquid via spoon Aspiration Risk Aspiration Observed No Amount of Aspiration Observed None Patient considered at risk of aspiration Yes during oral intake Patient is at risk for aspiration After the swallow,Before the swallow,During the swallow Severity of Aspiration Risk Severe Penetration into Laryngeal Vestibule Yes Penetration occured with Thick Honey Consistency,Thin Liquid Reason for aspirational risk: PATIENT AT RISK FOR ASPIRATION BEFORE THE SWALLOW DUE TO POOR BOLUS CONTROL WITH SCATTERED LOSS WITHIN ORAL CAVITY, PREMATURE SPILLAGE TO VALLECULAE AND PHARYNGEAL RECESSES. PATIENT WITH RISK OF ASPIRATION DURING THE SWALLOW DUE TO LARYNGEAL VESTIBULE PENETRATION OCCURRING DURING SWALLOW. PATIENT WITH RISK OF ASPIRATION AFTER THE SWALLOW DUE TO RESIDUE REMAINING IN MULTIPLE POCKETS IN LARYNGEAL/ PHARYNGEAL RECESSES, VALLECULAE, PYRIFORM SINUSES, AND POSTERIOR PORTION OF BUCCAL CAVITY. ADDITIONALLY, PATIENT AT MARKED RISK FOR ASPIRATION DUE TO HIS TALKING BEFORE, DURING , AND IMMEDIATELY AFTER THE SWALLOW. HE DEMONSTRATED DECREASED SENSATION TO LARGE VOLUME OF RESIDUE REMAINING IN ORAL CAVITY, LARYNGEAL RECESSES, PHARYNGEAL RECESSES, VALLECULAE, PYRIFORM SINUSES, TONGUE BASE. HE MADE NO INDEPENDENT ATTEMPTS FOR COUGH /CLEAR. Residue/Retention Residue Observed Valleculae Right,Valleculae Left,Pyriform Sinus Right, Pyriform Sinus Left, Aryepiglottic folds,Tongue Base Other UNABLE TO ASSESS ESOPHAGEAL FUNCTION DURING THIS MBS STUDY DUE TO MOVEMENT LIMITATIONS BY EQUIPMENT UTILIZED. PATIENT SCHEDULED FOR ESOPHAGRAM ON 12/18/21 FOLLOWING HIS C/O FEELING SOMETHING GETS STUCK AND HE REPORTED COUGHING UNTIL HE SPITS UP FOOD, LIQUID, PHLEGM. Assessment of Swallow Phases Oral Phase Labial Closure Moderate Impairment Bolus Formation No Bolus Control Pooling L/R Moderate Impairment Bolus Control under Tongue Moderate Impairment Bolus Control Scattered Loss Moderate Impairment Mastication Effectiveness No Impairment (WFL) A/P Bolus Propulsion Moderate Impairment Premature Spillage into: Pyriform Sinuses,Valleculae A/P Lingual Propulsion Delay No Impairment (WFL) Lingual Movement No Impairment (WFL) Residue Clearing/Sensitivity Severe Impairment Aspiration No Swallow Initiation Delay Mild Impairment Swallow Delay Time (sec) 1 Other Oral Phase Observations PATIENT DEMONSTRATED DECREASED BOLUS CONTROL/MANIPULATION, WITH SPILLAGE SUBLINGUALLY AND IN LEFT/RIGHT POSTERIOR PORTION OF BUCCAL CAVITY WITH MULTIPLE CONSISTENCIES TRIALLED. PATIENT DEMONSTRATED DECREASED ABILITY TO INDEPENDENTLY TAKE BOLUS FROM SPOON. HE SIMPLY KEPT HIS MOUTH OPEN AND ST HAD TO "POUR IN" BARIUM FROM THE SPOON AND CUP. WITH STRAW ATTEMPT, HE WAS ABLE TO GET A SMALL SIP. THIS IS MORE COGNITIVELY BASED, RATHER THAN SWALLOW MUSCULATURE DEFICIT. PATIENT DEMONSTRATED POOR BOLUS CONTROL AND MANIPULATION WITH ALL METHODS OF PRESENTATION, SIZE OF BOLUS, AND TEXTURE OF BOLUS. Pharyngeal Phase Base of Tongue Retraction No Impairment (WFL) Epiglottic Coverage No Impairment (WFL) Laryngeal Elevation No Impairment (WFL) Reduced Anterior Laryngeal Movement No Laryngeal Closure Mild Impairment Vallecular Retention Clearing Severe Impairment Pharyn. Wall Residue Clearing No Impairment (WFL) Pyriform Sinus Retention Moderate Impairment Penetration Yes Aspiration No Cricopharyngeal Dysfunction No Cough Cued Other Pharyngeal Phase Observation PATIENT WITH LARYNGEAL VESTIBULE PENETRATION OCCURRING WITH RELEASE OF ELEVATED LARYNX AND RELAXATION OF LARYNGEAL VESTIBULE CLOSURE PRIOR TO COMPLETION OF SWALLOW. PENETRATION OCCURRED FROM THE TAIL OF THE BOLUS. PATIENT WITH RECURRENT CONVERSATIONAL INTERACTION DURING AND AFTER INITIAL SWALLOW COMPLETION. VOCAL QUALITY WAS WET/GURGLY. PATIENT MADE NO INDEPENDENT ATTEMPT TO COUGH/CLEAR RESIDUE OR DRY SWALLOW. HE REQUIRED VERBAL CUES FROM ST. THIS DEMONSTRATES DECREASED SENSITIVITY TO LARGE VOLUME RESIDUE REMAINING IN ORAL CAVITY, BASE OF TONGUE, VALLECULAE, LARYNGEAL RECESSES , AND PHARYNGEAL RECESSES HE CONTINUED TO TALK BEFORE, DURING, AND AFTER CUED COUGH AND SWALLOW. 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 Speech Therapy Teaching Record Teaching Summary Results/Recommendations Learning Preferences Discussion Barriers to Learning None Readiness for Learning Accepting Teaching Methods Discussion Teaching Recipient Patient Response to Teaching Verbalize understanding ST Recommendations Diet Consistency Regular Comment SEE SAFE SWALLOW COMPENSATORY STRATEGIES BELOW. Liquid Consistency Regular Thin Comment SEE SAFE SWALLOW COMPENSATORY STRATEGIES BELOW. Follow-Up Primary Physician regarding findings/ Yes recommendations Safe Swallow Compensatory Strategies Compensatory Strategies Upright Position for all meals ,Small bites and drinks,Dry swallows,Alternate solids/ liquids,Chin Tuck Medication Instructions Per Patient Preference Staff/Family Suggestions Reinforce Treatment Program, Direct supervision/assistance with all meals Speech Therapist Treatment Program Oral Motor Exercises to improve strength Laryngeal,Lingual /ROM Therapeutic Feeds Teach Compensatory Techniques, Monitor Progress,Diet Consistency Analysis Additional Comments: PATIENT PLEASANT AND COOPERATIVE THROUGHOUT MBS STUDY. Signatures Speech Therapist Signature OMAR MS, CCC/H[employer] SCHO[employer]OR[employer] COACH Physician Signature DR YORK, RADIOLOGIST Initialized on 12/17/21 19:00 - END OF NOTE 12/17/21 16:02 Physical Therapy Note by [email or web address] PT. IN TESTING MUCH OF THE DAY AND VERY LETHARGIC AND CONFUSED AFTER ARRIVING BACK TO HIS ROOM FROM RADIOLOGY. PT. TRANSFERRED FROM W/C TO BED W/ RW W/ MIN- MOD ASSIST. REQUIRED MOD ASSIST X 2 TO MOVE FROM SIT TO SUPINE. PT. ASLEEP IMMEDIATELY. WILL CHECK ON PT. TOMORROW, BUT PLAN SI TO D/C TO SNF TO CONT. REHAB. RX TIME - [id number] Initialized on 12/17/21 16:02 - END OF NOTE 12/17/21 10:54 Case Management Note by Claudia Banuelos SON AND UPDATED THAT [facility] IS SET UP. PATIENT AWARE AND AGREEABLE WELL. SON TOMMY STATED HE WOULD BE ABLE TO TAKE PATIENT TO [facility] AT TIME OF DC. HE IS AWARE TO BRING PATIENT'S PORTABLE OXYGEN CONCENTRATOR WITH HIM THE DAY OF DC. Initialized on 12/17/21 10:54 - END OF NOTE 12/17/21 10:17 Case Management Note by Claudia Banuelos [facility] [place] HAS ACCEPTED PATIENT AND WILL BE READY FOR HIM AT TIME OF DC Initialized on 12/17/21 10:17 - END OF NOTE Assessment/Plan (1) Dysphagia Current Visit: Yes Status: Acute Assessment & Plan: esophagram pending, MBS noted with significant dysphagia. disposition to [facility] pending results of swallow evaluation and recommendations Code(s): R13.10 - DYSPHAGIA, UNSPECIFIED (2) UTI (urinary tract infection) Current Visit: Yes Status: Acute Assessment & Plan: on cipro, enterococcus sens Code(s): N39.0 - URINARY TRACT INFECTION, SITE NOT SPECIFIED (3) Herpes zoster Current Visit: Yes Status: Acute Code(s): B02.9 - ZOSTER WITHOUT COMPL ICATIONS (4) Altered mental status Current Visit: Yes Status: Acute Code(s): R41.82 - ALTERED MENTAL STATUS, UNSPECIFIED
[2021-12-18] MEDS: Cipro 500 MG PO SCH ×2 (08:37→17:06)
[2021-12-18] MEDS: HYDROCODONE-ACETAMIN 10-325 MG PO PRN ×2 (08:38→20:21)
--- NOTE | 2021-12-18 10:06 | XRAY ---
Indication: Dysphagia. Due to marked limited mobility, frailty, and unable to stand, the esophagram was only performed in the AP plane. Patient positioned supine and semierect on the fluoroscopy table. Patient ingested barium through a straw without miss swallow or aspiration. Esophagus is normal in course and caliber without focal stricture, obstruction, or filling defect. Barium freely emptied into the stomach. No hiatal hernia. Impression: Negative limited esophagram. Approximately 0.2 minute fluoroscopy used.
[2021-12-18] MEDS: ECOTRIN 81 MG PO SCH (10:24)
[2021-12-18] MEDS: Klor Con 10 MEQ PO SCH (10:24)
[2021-12-18] MEDS: Cordarone 200 MG PO SCH (10:24)
[2021-12-18] MEDS: LASIX 20 MG PO SCH (10:24)
[2021-12-18] MEDS: Bactroban OINTMENT TOP SCH ×3 (14:52→22:05)
--- NOTE | 2021-12-18 16:12 | XRAY ---
Indication: Acute confusion. Multiple contiguous axial images obtained through the head without contrast. Comparison: December 14, 2021. Study is now mildly degraded by motion artifact throughout. 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 No acute intracranial hemorrhage, abnormal extra-axial fluid collection, or mass effect. Fourth ventricle is midline without hydrocephalus. Bony calvarium grossly intact. Visualized paranasal sinuses and mastoid air cells are clear. Impression: Motion artifact. Grossly stable nonacute senile brain with chronic features.
[2021-12-18] MEDS: Sodium Chloride 0.9% 1000 ML 1,000 ML IV SCH (20:40)
[2021-12-19] MEDS: Sodium Chloride 0.9% 1000 ML 1,000 ML IV SCH (00:14)
[2021-12-19 05:28] LABS: Absolute Neutrophil Ct (ANC) 8.73 (1.4-6.9); Basophil (Absolute #) 0 (0-0.4); Eosinophil % 0.6 % (0.00-5.0); Eosinophil (Absolute #) 0.06 (0-0.5); Hematocrit 47.4 % (42-50); Lymphocyte (Absolute #) 0.64 (1.0-4.6); Lymphocytes % 6.3 % (24.0-44.0); Mean Corpuscular Hemoglobin 30.4 pg (26-32); Mean Corpuscular Hgb Concent. 31.6 g/dl (32-36); Mean Platelet Volume 10.3 fl (7.5-11.0); Monocytes % 6.9 % (0.0-12.0); Neutrophil % 86.2 % (36.0-66.0); Platelet Count 120 K/mm3 (150-450); Red Blood Count 4.94 M/mm3 (4.1-5.6); Red Cell Distribution Width 16.4 % (11.5-14.0); White Blood Count 10.1 K/mm3 (4.0-10.5)
[2021-12-19 06:07] LABS: ANION GAP 9.7 MEQ/L (5-15); BLOOD UREA NITROGEN 25 mg/dL (9-20); CHLORIDE 94 mmol/L (98-107); Calcium 8.4 mg/dL (8.4-10.2); Carbon Dioxide 36 mmol/L (22-30); Creatinine 1 0.64 mg/dL (0.66-1.25); EST GLOMERULAR FILTRATION RATE > 60.0 ML/MIN; Glucose 152 mg/dL (74-106); SODIUM 135 mmol/L (137-145)
[2021-12-19] MEDS: HYDROCODONE-ACETAMIN 10-325 MG PO PRN ×2 (08:11→22:19)
[2021-12-19] MEDS: Cipro 500 MG PO SCH ×2 (08:12→16:09)
[2021-12-19] MEDS: Klor Con 10 MEQ PO SCH (09:31)
[2021-12-19] MEDS: Cordarone 200 MG PO SCH (09:31)
[2021-12-19] MEDS: ECOTRIN 81 MG PO SCH (09:31)
[2021-12-19] MEDS: LASIX 20 MG PO SCH (09:31)
[2021-12-19] MEDS: Bactroban OINTMENT TOP SCH ×3 (09:32→22:19)
--- NOTE | 2021-12-19 13:45 | PCM.NOTE ---
Date and Time: 12/19/21 1340 Subjective Assessment: Pt's HR has been 109-125 over the past 24 hours. Has been confused; worse with pain meds. He denies any pain to me currently. - Review of Systems Constitutional: No Fever Eyes: Other (edema in R eyelid) Skin: Rash (zoster, R CN V1 distribution) Objective Exam General Appearance: no apparent distress, alert (wakes to voice) Neurologic Exam: cooperative, other (somnolent) Skin Exam: normal color, warm, dry, rash (dried/scabbed confluent vesicles in R CN V1 distribution.) Ears, Nose, Throat Exam: moist mucous membranes Respiratory Exam: diminished breath sounds (fair air exchange), No crackles/rales, No rhonchi, No wheezing Cardiovascular Exam: normal heart sounds, tachycardia, No murmur Gastrointestinal/Abdomen Exam: soft, normal bowel sounds, No tenderness, No distention, No mass, No guarding, No rebound Extremity Exam: normal inspection, No pedal edema, No swelling OBJECTIVE DATA Vital Signs: Vital Signs - 24 hr Temp Pulse Resp BP Pulse Ox 12/19/21 11:38 97.8 F 109 H 18 115/59 96 12/19/21 07:11 96 12/19/21 06:25 98.4 F 127 H 20 128/73 91 L 12/19/21 04:00 97.3 F 121 H 24 98/62 90 L 12/18/21 23:58 97.5 F 124 H 28 H 99/73 90 L 12/18/21 20:00 97.5 F 106 H 24 116/69 90 L 12/18/21 18:50 94 L 12/18/21 14:11 89 L Pain Assessment - Last Documented Pain Intensity 0 Pain Scale Used 0-10 Pain Scale Intake and Output: Intake & Output 12/17/21 12/18/21 12/19/21 12/20/21 11:59 11:59 11:59 11:59 Intake Total 2577 740 1022 Output Total 2150 550 1100 Balance 427 190 -78 Weight 86.2 kg Lab Results: Lab Results-Last 24 Hours 12/18/21 12/19/21 12/19/21 Range/Units 04:25 04:49 04:49 WBC 10.1 (4.0-10.5) K/mm3 RBC 4.94 (4.1-5.6) M/mm3 Hgb 15.0 (12.5-18.0) gm/dl Hct 47.4 (42-50) % MCV 96.0 (78-100) fl MCH 30.4 (26-32) pg MCHC 31.6 L (32-36) g/dl RDW 16.4 H (11.5-14.0) % Plt Count 120 L (150-450) K/mm3 MPV 10.3 (7.5-11.0) fl Gran % 86.2 H (36.0-66.0) % Eos # (Auto) 0.06 (0-0.5) Absolute Lymphs (auto) 0.64 L (1.0-4.6) Absolute Monos (auto) 0.70 (0.0-1.3) Lymphocytes % 6.3 L (24.0-44.0) % Monocytes % 6.9 (0.0-12.0) % Eosinophils % 0.6 (0.00-5.0) % Basophils % 0.0 (0.0-0.4) % Absolute Granulocytes 8.73 H (1.4-6.9) Basophils # 0 (0-0.4) Sodium 135 L (137-145) mmol/L Potassium 4.0 (3.5-5.1) mmol/L Chloride 94 L (98-107) mmol/L Carbon Dioxide 36 H (22-30) mmol/L Anion Gap 9.7 (5-15) MEQ/L BUN 25 H (9-20) mg/dL Creatinine 0.64 L (0.66-1.25) mg/dL Estimated GFR > 60.0 ML/MIN Glucose 152 H (74-106) mg/dL Calcium 8.4 (8.4-10.2) mg/dL Prealbumin 8.13 L (17.6-36.0) mg/dL Radiology Exams: Radiology Procedures Category Date Time Status BARIUM SWALLOW ESOPHOGRAM Routine Exams 12/18/21 09:30 Completed HEAD WITHOUT CONTRAST [CT] Stat Exams 12/18/21 13:30 Completed Multi-Disciplinary Progress Notes: Multi-Disciplinary Progress Notes 12/18/21 15:51 Physical Therapy Note by [id number] PT. SEEN BY PT THIS P.M. 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 STATES SHINGLES AREN'T HURTING BADLY TODAY. PT. ALERT AND ORIENTED TO NAME, LOCATION (AFTER CUEING) AND KNEW MONTH AND DAY OF THE WEEK. IN BED UPON P.T. ARRIVAL TO ROOM. AGREEABLE TO GET UP IN CHAIR. SUPINE TO SIT PERFORMED W/ MIN-MOD ASSIST X 1 W/ HOB ELEVATED. SIT TO STAND - MOD ASSIST X 1. PERFORMED STAND PIVOT TRANSFER TO BEDSIDE CHAIR W/ MIN ASSIST X 1 W/ RW. PT. PERFORMED SEATED ANKLE PUMPS, HEEL SLIDES AND SLRS ACTIVE ASSISTED. 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 PT; TO HAVE HEAD CT THIS PM. TO D/C TO MMM TO CONT. REHAB IN SNF WHEN STABLE. WILL CONT. P.T. 5X/WK UNTIL D/C. Initialized on 12/18/21 15:51 - END OF NOTE Assessment/Plan (1) UTI (urinary tract infection) Current Visit: Yes Status: Acute Qualifiers: Urinary tract infection type: acute cystitis Hematuria presence: without hematuria Qualified Code(s): N30.00 - Acute cystitis without hematuria Assessment & Plan: on cipro Code(s): N39.0 - URINARY TRACT INFECTION, SITE NOT SPECIFIED (2) Altered mental status Current Visit: Yes Status: Acute Qualifiers: Altered mental status type: delirium Qualified Code(s): R41.0 - Disorientation, unspecified Code(s): R41.82 - ALTERED MENTAL STATUS, UNSPECIFIED (3) Dysphagia Current Visit: Yes Status: Acute Qualifiers: Dysphagia type: unspecified Qualified Code(s): R13.10 - Dysphagia, unspecified Assessment & Plan: Await rec.s following swallow study. Code(s): R13.10 - DYSPHAGIA, UNSPECIFIED (4) Herpes zoster Current Visit: Yes Status: Acute Qualifiers: Herpes zoster complications: unspecified herpes zoster complication Qualified Code(s): B02.8 - Zoster with other complications Assessment & Plan: Unsure if pt had been to ophthalmology; the zoster appears dry, so this would not be an acute issue. Code(s): B02.9 - ZOSTER WITHOUT COMPLICATIONS (5) Tachycardia Current Visit: Yes Status: Acute Assessment & Plan: Getting EKg and putting pt on telemetry. He is chronically on amiodarone 200mg daily; may need to discuss with his sponge press operator, Dr. Mc. Code(s): R00.0 - TACHYCARDIA, UNSPECIFIED
[2021-12-20] MEDS: Sodium Chloride 0.9% 1000 ML 1,000 ML IV SCH (02:06)
[2021-12-20] MEDS ORDERED: Lopressor 25MG Tab PO SCH ×2 (07:31→10:00)
[2021-12-20] MEDS: Cipro 500 MG PO SCH (07:33)
[2021-12-20] MEDS: Cordarone 200 MG PO SCH (08:28)
[2021-12-20 09:14] LABS: Hematocrit 47.8 % (42-50); Hemoglobin 15.1 gm/dl (12.5-18.0); Mean Cell Volume 96.2 fl (78-100); Mean Corpuscular Hemoglobin 30.4 pg (26-32); Mean Corpuscular Hgb Concent. 31.6 g/dl (32-36); Mean Platelet Volume 9.8 fl (7.5-11.0); Platelet Count 123 K/mm3 (150-450); Red Blood Count 4.97 M/mm3 (4.1-5.6); Red Cell Distribution Width 16.6 % (11.5-14.0); White Blood Count 10.4 K/mm3 (4.0-10.5)
[2021-12-20 09:27] LABS: ALBUMIN 2.8 g/dL (3.5-5.0); ALKALINE PHOSPHATASE 94 U/L (38-126); ANION GAP 9.4 MEQ/L (5-15); BLOOD UREA NITROGEN 23 mg/dL (9-20); CHLORIDE 94 mmol/L (98-107); Calcium 8.8 mg/dL (8.4-10.2); Carbon Dioxide 38 mmol/L (22-30); Creatinine 1 0.56 mg/dL (0.66-1.25); EST GLOMERULAR FILTRATION RATE > 60.0 ML/MIN; Glucose 111 mg/dL (74-106); Potassium 4.3 mmol/L (3.5-5.1); SGOT/AST 48 U/L (17-59); SGPT/ALT 45 U/L (0-50); SODIUM 137 mmol/L (137-145); Total Protein 5.8 g/dL (6.3-8.2)
--- NOTE | 2021-12-20 09:39 | PCM.NOTE ---
Date and Time: 12/20/21932 Subjective Assessment: He required 12L oximask overnight - he does take off the mask frequently with desaturations into the low 80s. He says, "I'm ready to go." He is alert and oriented for me - knows he is in the hospital, says it is the 4th month, and the " or 18." Asks who the movie stars are on the TV. HR into the 120s now. - Review of Systems Constitutional: No Fever Respiratory: Short Of Breath Cardiac: Other (tachycardia) Objective Exam General Appearance: no apparent distress, alert Neurologic Exam: oriented x 3, No cooperative (won't lean up for lung exam, even with assistance.) Skin Exam: warm, dry, other (Dried zoster in CN V1 distribution on R) Eye Exam: other (able to open both eyes) Neck Exam: normal inspection Respiratory Exam: diminished breath sounds, No crackles/rales, No rhonchi, No wheezing Cardiovascular Exam: normal heart sounds, tachycardia, No murmur Gastrointestinal/Abdomen Exam: soft, normal bowel sounds, No tenderness, No mass, No guarding, No rebound Extremity Exam: No pedal edema, No swelling OBJECTIVE DATA Vital Signs: Vital Signs - 24 hr Temp Pulse Resp BP Pulse Ox 12/20/21 07:53 98.6 F 120 H 38 H 123/70 92 L 12/20/21 07:46 91 L 12/20/21 03:49 97.7 F 126 H 28 H 117/75 95 12/20/21 00:00 97.5 F 117 H 24 110/69 96 12/19/21 20:00 97.5 F 125 H 33 H 126/83 89 L 12/19/21 19:50 95 12/19/21 16:00 98.4 F 123 H 22 117/70 94 L 12/19/21 11:38 97.8 F 109 H 18 115/59 96 Pain Assessment - Last Documented Pain Intensity 0 Pain Scale Used [facility] Intake and Output: Intake & Output 12/17/21 12/18/21 12/19/21 12/20/21 11:59 11:59 11:59 11:59 Intake Total 2577 740 1022 1420 Output Total 2150 550 1100 1250 Balance 427 190 -78 170 Weight 86.2 kg Lab Results: Lab Results-Last 24 Hours 12/20/21 12/20/21 Range/Units 08:55 08:55 WBC 10.4 (4.0-10.5) K/mm3 RBC 4.97 (4.1-5.6) M/mm3 Hgb 15.1 (12.5-18.0) gm/dl Hct 47.8 (42-50) % MCV 96.2 (78-100) fl MCH 30.4 (26-32) pg MCHC 31.6 L (32-36) g/dl RDW 16.6 H (11.5-14.0) % Plt Count 123 L (150-450) K/mm3 MPV 9.8 (7.5-11.0) fl Lactic Acid 1.7 (0.4-2.0) Radiology Exams: Radiology Procedures Category Date Time Status BARIUM SWALLOW ESOPHOGRAM Routine Exams 12/18/21 09:30 Completed CHEST 1 VIEW (PORTABLE) Stat Exams 12/20/21 08:57 Taken HEAD WITHOUT CONTRAST [CT] Stat Exams 12/18/21 13:30 Completed Multi-Disciplinary Progress Notes: Multi-Disciplinary Progress Notes 12/20/21 02:37 Respiratory Note by Claudia San RT CALLED DUE TO LOW SPO2 ON 6L NC. PLACED ON 12L OXYMASK. SPO2 INCREASED TO 92% Initialized on 12/20/21 02:37 - END OF NOTE Assessment/Plan (1) Bilateral pneumonia Current Visit: Yes Status: Acute Qualifiers: Pneumonia type: due to unspecified organism Lung location: lower lobe of lung Qualified Code(s): J18.9 - Pneumonia, unspecified organism Assessment & Plan: Bilat, with clinical worsening (hypoxemia). Will start pt on IV zosyn. Code(s): J18.9 - PNEUMONIA, UNSPECIFIED ORGANISM (2) UTI (urinary tract infection) Current Visit: Yes Status: Acute Qualifiers: Urinary tract infection type: acute cystitis Hematuria presence: without hematuria Qualified Code(s): N30.00 - Acute cystitis without hematuria Assessment & Plan: finishing up 5d of cipro today. Code(s): N39.0 - URINARY TRACT INFECTION, SITE NOT SPECIFIED (3) Altered mental status Current Visit: Yes Status: Acute Qualifiers: Altered mental status type: delirium Qualified Code(s): R41.0 - Disorientation, unspecified Assessment & Plan: was disoriented for RN earlier today. Code(s): R41.82 - ALTERED MENTAL STATUS, UNSPECIFIED (4) Dysphagia Current Visit: Yes Status: Ruled-out Qualifiers: Dysphagia type: unspecified Qualified Code(s): R13.10 - Dysphagia, unspecified Assessment & Plan: Passed swallow study, with instructions to sit up while eating (see report). Code(s): R13.10 - DYSPHAGIA, UNSPECIFIED (5) Herpes zoster Current Visit: Yes Status: Chronic Qualifiers: Herpes zoster complications: unspecified herpes zoster complication Qualified Code(s): B02.8 - Zoster with other complications Assessment & Plan: improving Code(s): B02.9 - ZOSTER WITHOUT COMPLICATIONS (6) Atrial fibrillation Current Visit: Yes Status: Acute Qualifiers: Atrial fibrillation type: longstanding persistent Qualified Code(s): I48.11 - Longstanding persistent atrial fibrillation Assessment & Plan: I spoke with Dr. Olvera yesterday about adding beta blockers for his increased HR. Pt is on amiodarone, but titration takes longer than with the beta akash. Code(s): I48.91 - UNSPECIFIED ATRIAL FIBRILLATION (7) Bilateral pleural effusion Current Visit: Yes Status: Acute Assessment & Plan: small effusions were present on CT last week - this reading from teleradiol - would like to see Dr. Marinelli's comparison. Code(s): J90 - PLEURAL EFFUSION, NOT ELSEWHERE CLASSIFIED (8) Full code status Current Visit: Yes Status: Chronic Assessment & Plan: Per pt's and son, they just discussed with him in the room and he is a full code. Code(s): Z78.9 - OTHER SPECIFIED HEALTH STATUS
[2021-12-20] MEDS ORDERED: Sodium Chloride 0.9% 1000 ML 1,000 ML IV SCH (09:45)
[2021-12-20] MEDS ORDERED: ENOXAPARIN SODIUM SQ SCH ×3 (10:00→10:15)
[2021-12-20] MEDS ORDERED: Acidophilus TABLET PO SCH (10:00)
[2021-12-20] MEDS: Bactroban OINTMENT TOP SCH (10:45)
[2021-12-20] MEDS: Klor Con 10 MEQ PO SCH (10:46)
[2021-12-20] MEDS: LASIX 20 MG PO SCH (10:46)
[2021-12-20] MEDS: ECOTRIN 81 MG PO SCH (10:46)
[2021-12-20 11:29] VITALS: BP 109/69; PULSE 105; O2SAT 93
--- NOTE | 2021-12-20 11:55 | PCM.DS ---
Discharge Summary Date of Admission: 12/14/21 23:31 Admitting Physician: AKBAR SALAZAR Primary Care Provider: AKBAR SALAZAR Allergies Allergies No Known Drug Allergies Allergy (Verified 12/14/21 20:19) Hospital Summary - Hospital Course Hospital Course: Pt is an 89 yo male pt of Dr. Salazar' with PMHx afib and recent herpes zoster (no longer on meds) who was admitted to [facility] with UTI and AMS. He was on po cipro floxacin and has finished a 5 day course. He became more hypoxemic last night, requiring 12L oxymask, and workup today showed elevated troponin, bilateral airspace opacities, and bilateral pleural effusions. The opacities and effusions were present on CT from 12/17/21, but clinically with hypoxemia indicating possible pneumonia, pt was started on IV zosyn. Pt is still having pain from his herpes zoster but is not on any antivirals and was not on isolation here. Pt's HR was normal for the first few days of his stay, then was elevated into the low 100s; I spoke with Dr. Olvera, telephonic nurse case manager for his young adult librarian Dr. Mc, who advised adding a beta akash if needed; metoprolol was added. Pt's troponin was 1.12 this morning, so he will be transferred to [facility] with Type II IN, PNA, and hypoxemia. I have spoken with Dr. Olvera and with Dr. Rodney, the hospitalist at [facility]. Pt has received lovenox at 1mg/kg today, as well as 81mg ASA. - Vitals & Intake/Output Vital Signs: Vital Signs Temperature 98.2 F 12/20/21 11:28 Pulse Rate 105 H 12/20/21 11:28 Respiratory Rate 24 12/20/21 11:28 Blood Pressure 109/69 12/20/21 11:28 O2 Sat by Pulse Oximetry 93 L 12/20/21 11:28 Intake & Output: Intake & Output 12/17/21 12/18/21 12/19/21 12/20/21 11:59 11:59 11:59 11:59 Intake Total 2577 740 1022 1420 Output Total 2150 550 1100 1250 Balance 427 190 -78 170 Weight 86.2 kg - Lab Result Diagrams: 12/20/21 08:55 12/20/21 08:55 Lab Results-Last 24 Hrs: Lab Results-Last 24 Hours 12/20/21 12/20/21 12/20/21 Range/Units 08:55 08:55 08:55 WBC 10.4 (4.0-10.5) K/mm3 RBC 4.97 (4.1-5.6) M/mm3 Hgb 15.1 (12.5-18.0) gm/dl Hct 47.8 (42-50) % MCV 96.2 (78-100) fl MCH 30.4 (26-32) pg MCHC 31.6 L (32-36) g/dl RDW 16.6 H (11.5-14.0) % Plt Count 123 L (150-450) K/mm3 MPV 9.8 (7.5-11.0) fl Sodium 137 (137-145) mmol/L Potassium 4.3 (3.5-5.1) mmol/L Chloride 94 L (98-107) mmol/L Carbon Dioxide 38 H (22-30) mmol/L Anion Gap 9.4 (5-15) MEQ/L BUN 23 H (9-20) mg/dL Creatinine 0.56 L (0.66-1.25) mg/dL Estimated GFR > 60.0 ML/MIN Glucose 111 H (74-106) mg/dL Lactic Acid 1.7 (0.4-2.0) Calcium 8.8 (8.4-10.2) mg/dL Total Bilirubin 1.70 H (0.2-1.3) mg/dL AST 48 (17-59) U/L ALT 45 (0-50) U/L Alkaline Phosphatase 94 (38-126) U/L Ammonia (9-30) umol/L Troponin I (0.000-0.034) ng/mL Serum Total Protein 5.8 L (6.3-8.2) g/dL Albumin 2.8 L (3.5-5.0) g/dL 12/20/21 12/20/21 Range/Units 08:55 08:55 WBC (4.0-10.5) K/mm3 RBC (4.1-5.6) M/mm3 Hgb (12.5-18.0) gm/dl Hct (42-50) % MCV (78-100) fl MCH (26-32) pg MCHC (32-36) g/dl RDW (11.5-14.0) % Plt Count (150-450) K/mm3 MPV (7.5-11.0) fl Sodium (137-145) mmol/L Potassium (3.5-5.1) mmol/L Chloride (98-107) mmol/L Carbon Dioxide (22-30) mmol/L Anion Gap (5-15) MEQ/L BUN (9-20) mg/dL Creatinine (0.66-1.25) mg/dL Estimated GFR ML/MIN Glucose (74-106) mg/dL Lactic Acid (0.4-2.0) Calcium (8.4-10.2) mg/dL Total Bilirubin (0.2-1.3) mg/dL AST (17-59) U/L ALT (0-50) U/L Alkaline Phosphatase (38-126) U/L Ammonia < 9 L (9-30) umol/L Troponin I 1.120 H* (0.000-0.034) ng/mL Serum Total Protein (6.3-8.2) g/dL Albumin (3.5-5.0) g/dL Micro Results-Entire Visit: Microbiology 12/14/21 21:30 Blood Culture Gram Stain - Final Blood Not Reportable Blood Culture - Final NO GROWTH 12/14/21 20:05 Blood Culture Gram Stain - Final Blood Not Reportable Blood Culture - Final NO GROWTH 12/14/21 20:19 Urine Culture - Final Clean Catch Midstream Enterococcus Faecalis - Radiology Exams Ordered Rad Exams-Entire Visit: Radiology Procedures Category Date Time Status CHEST 1 VIEW (PORTABLE) Stat Exams 12/20/21 08:57 Taken HEAD WITHOUT CONTRAST [CT] Stat Exams 12/18/21 13:30 Completed - Procedures and Test Procedures and Tests throughout Hospitalization: Therapy Orders & Screens 12/15/21 00:21 OT Screen per Nursing Assess ONCE Comment: Protocol Order Physician Instructions: Greater than 3 points order OT Admission Screening Reason For Exam: Triggered on Admission Diagnosis: UTI Open Wound/Cellutlitis/Pressure Ulcers: Yes Acute Fx/ORIF/Change in wt bearing status: No Severe MUSCULOSKELETAL pain: No ADL Dysfunction: Yes Acute CVA w/Hemiparesis/Hemiplegia: No Decreased Functional Mobility/Strength: Yes Sprain/Strain: No Acute Post-op Mobility Dysfunction: No Total Points: 9 PT Screen per Nursing Assess ONCE Comment: Protocol Order Physician Instructions: Greater than 3 points order PT Admission Screenin Reason For Exam: Triggered on Admission Diagnosis: UTI Open Wound/Cellutlitis/Pressure Ulcers: Yes Acute Fx/ORIF/Change in wt bearing status: No Severe MUSCULOSKELETAL pain: No ADL Dysfunction: Yes Acute CVA w/Hemiparesis/Hemiplegia: No Decreased Functional Mobility/Strength: Yes Sprain/Strain: No Acute Post-op Mobility Dysfunction: No Total Points: 9 12/15/21 09:08 Speech Therapy Eval & Treat [ST Eval & Treat ( Order)] .as ordered Comment: Physician Instructions: Reason For Exam: Evaluate: Yes Treat: Yes Reason for Eval: family and pt report choking when eating. pt states food gets stuck in throat Diagnosis: UTI 12/15/21 11:33 Oxygen NASAL CANNULA 2 lpm Comment: Diagnosis: UTI 12/16/21 09:40 PT Eval & Treat ( Order) ONCE Reason for Eval:: WEAKNESS Diagnosis: UTI 12/19/21 13:35 EKG ROUTINE Comment: Diagnosis: tachycardia 12/20/21 10:16 EKG ROUTINE Comment: Diagnosis: tachycardia Discharge Exam General Appearance: no apparent distress, alert, other (exam done this morning; see previous note as well) Neurologic Exam: oriented x 3, No cooperative Eye Exam: other (able to open both eyes) Ears, Nose, Throat Exam: moist mucous membranes Respiratory Exam: diminished breath sounds, No crackles/rales, No rhonchi, No wheezing Cardiovascular Exam: normal heart sounds, tachycardia, No murmur Gastrointestinal/Abdomen Exam: soft, normal bowel sounds, No tenderness, No mass, No rebound Extremity Exam: normal inspection, No pedal edema, No swelling Skin Exam: warm, dry, rash (healing vesicles in R CN V1 distribution.) Final Diagnosis/Problem List - Final Discharge Diagnosis/Problem (1) NSTEMI (non-ST elevated myocardial infarction) Current Visit: Yes Status: Acute Assessment & Plan: Type II IN is likely, with multiple comorbid conditions. Transfer to with Dr. Mc's group to consult. Code(s): I21.4 - NON-ST ELEVATION (NSTEMI) MYOCARDIAL INFARCTION (2) Hypoxemia Current Visit: Yes Status: Acute Code(s): R09.02 - HYPOXEMIA (3) Bilateral pneumonia Current Visit: Yes Status: Acute Assessment & Plan: on day #1 IV zosyn. Code(s): J18.9 - PNEUMONIA, UNSPECIFIED ORGANISM (4) UTI (urinary tract infection) Current Visit: Yes Status: Resolved Assessment & Plan: Finished 5d of PO Cipro. Code(s): N39.0 - URINARY TRACT INFECTION, SITE NOT SPECIFIED (5) Altered mental status Current Visit: Yes Status: Acute Assessment & Plan: Likely delerium; he was oriented for me this morning, but disoriented for RN earlier. Code(s): R41.82 - ALTERED MENTAL STATUS, UNSPECIFIED (6) Dysphagia Current Visit: Yes Status: Ruled-out Assessment & Plan: Was noted to choke earlier in his stay; had swallow study which he basically passed with some recommendations regarding sitting up to eat and chin tilt. Code(s): R13.10 - DYSPHAGIA, UNSPECIFIED (7) Herpes zoster Current Visit: Yes Status: Chronic Assessment & Plan: Resolving, but with residual pain; still has rash although it is dry. Code(s): B02.9 - ZOSTER WITHOUT COMPLICATIONS (8) Atrial fibrillation Current Visit: Yes Status: Chronic Assessment & Plan: Rate now in the 90s with amiodarone 200mg daily (chronic med) and addition today of 25mg metoprolol tartrate. Code(s): I48.91 - UNSPECIFIED ATRIAL FIBRILLATION (9) Bilateral pleural effusion Current Visit: Yes Status: Acute Assessment & Plan: Await the overread from our radiologist, as virtual radiology did not compare this with our film from earlier in pt's stay. The effusions were present, but were noted as "small" on those films. Code(s): J90 - PLEURAL EFFUSION, NOT ELSEWHERE CLASSIFIED (10) Full code status Current Visit: Yes Status: Chronic Assessment & Plan: Pt discussed with his and son today, and does want to be a full code. Earlier in the day, however, he was saying to me, "I'm ready to go." Code(s): Z78.9 - OTHER SPECIFIED HEALTH STATUS - Discharge Disposition: DC TO [facility] Condition: Serious Prescriptions: No Action Hydrocodone/Acetaminophen [Hydrocodone-Acetamin 7.5-325] 1 each PO BIDPRN PRN PRN Reason: Pain Amiodarone HCl 200 mg PO DAILY Aspirin 81 mg PO DAILY Potassium Chloride 10 mg PO DAILY Furosemide [Lasix] 20 mg PO DAILY Nitroglycerin 0.4 mg PO Q5MIN PRN MR X 3 PRN PRN Reason: Chest Pain Valacyclovir HCl [Valacyclovir] 1,000 mg PO TID Ondansetron [Ondansetron Odt] 4 mg PO TIDPRN PRN PRN Reason: Nausea Mupirocin [Bactroban OINTMENT] 1 applic TOP TID Follow up with: AKBAR SALAZAR MD [Primary Care Provider] -
[2021-12-20] MEDS ORDERED: PIPERACILLIN/TAZOBACTAM 3.375 GM in Sodium Chloride 100ML MINI-BAG PLUS 100 ML IV SCH (12:00)
--- NOTE | 2021-12-20 18:16 | XRAY ---
Indication: Productive cough. Comparison: December 16, 2021. Portable demonstrates worsening diffuse bilateral interstitial alveolar opacities, left greater than right. Also new moderate left effusion with stable small right effusion. Heart within normal limits for AP portable technique again with postsurgical changes. Comment: Preliminary interpretation made by [facility]. No critical discrepancy.
== END 2021-12-20 13:10 | disposition home or self-care (01) | DRG 280 ==
LOC: ED 19:57 → MED SURG 23:31
PROVIDERS: ADMIT Family Medicine; ATTEND Family Medicine
DX: I21.4 Non-ST elevation (NSTEMI) myocardial infarction (principal); J18.9 Pneumonia, unspecified organism; N39.0 Urinary tract infection, site not specified; J90 Pleural effusion, not elsewhere classified; R09.02 Hypoxemia; R41.82 Altered mental status, unspecified; R13.10 Dysphagia, unspecified; B02.9 Zoster without complications; I48.91 Unspecified atrial fibrillation; J44.9 Chronic obstructive pulmonary disease, unspecified; R00.0 Tachycardia, unspecified; Z79.01 Long term (current) use of anticoagulants; Z79.899 Other long term (current) drug therapy; Z85.46 Personal history of malignant neoplasm of prostate; Z20.828 Contact with and (suspected) exposure to other viral communicable diseases
CPT/HCPCS: 0241U; 36000; 36415; 51702; 70450; 71045; 71250; 74220; 74230; 80048; 80053; 81015; 82140; 83605; 84134; 84484; 85025; 85027; 87040; 87077; 87086; 87186; 93005; 94760; 94762; 96365; 99285; J1650; J1956; J2405; A9270-GY